=== PATIENT | female | born 2000 ===

== ENCOUNTER 2018-12-13 07:48 | Outpatient (CLI) | payer OTHER ==
[~2018-12-13] VITALS: Ht 167.6 cm; Wt 62.1 kg
== END 2018-12-13 08:05 | disposition home or self-care (01) ==
LOC: OFIC 805 07:48
DX: J35.01 Chronic tonsillitis (principal); J35.1 Hypertrophy of tonsils; J31.0 Chronic rhinitis; J04.0 Acute laryngitis